=== PATIENT | male | born 1955 | race Caucasian/White ===

== ENCOUNTER 2022-08-04 06:57 | Observation (INO) ==
[2022-08-04 08:07] LABS: BUN Creatinine Ratio 18.5 (10-20); Calcium 8.8 mg/dl (8.5-10.1); Creatinine Clr Calc Pharmacy 72.1 ml/min; Est GFR (African American) 52.8 ml/min; Est GFR (Non-African American) 45.6 ml/min
[2022-08-04 08:11] LABS: Hematocrit (blood only) 42.5 % (40.1-51.0); Hemoglobin 14.8 g/dl (14.0-18.0); Mean Corpuscular Hemoglobin 28.7 pg (25.0-34.0); Mean Corpuscular Hgb Conc 34.8 g/dL (32.0-36.0); Mean Corpuscular Volume 82.4 fL (80.0-100.0); Mean Platelet Volume 9.1 fL (9.4-12.4); Platelet Count 138 K/uL (130-400); RDW Coefficient of Variation 14.6 % (11.5-14.5); RDW Standard Deviation 42.5 fL (36.4-46.3); Red Blood Count 5.16 M/uL (4.63-6.08); White Blood Count 7.16 K/ul (4.8-10.8)
[2022-08-04] MEDS ORDERED: HEPARIN (PORCINE) 1000 UNIT/ML 10 ML (CATH LAB USE ONLY) ONE ×2 (11:01→12:52)
[2022-08-04] MEDS ORDERED: fentaNYL citrate 100 MCG/2 ML VIAL ONE (11:01)
[2022-08-04] MEDS ORDERED: niCARdipine HCL INJ 2.5 MG/ML 10 ML AMP ONE (11:01)
[2022-08-04] MEDS ORDERED: NITROGLYCERIN/D5W 100MCG/ML 20ML SYR ONE (11:02)
[2022-08-04] MEDS ORDERED: MIDAZOLAM HCL 1 MG/ML 2ML VIAL ONE ×2 (11:02→13:14)
[2022-08-04] MEDS ORDERED: LIDOCAINE 1% LOCAL 20 ML VIAL ONE (11:07)
--- NOTE | 2022-08-04 11:30 | Pre Anesthesia Assessment ---
Date of Service August 04, 2022 Pre Sedation Assessment Vital Signs Temp Pulse Resp BP Pulse Ox O2 Del Method 08/04/22 07:19 98.4 F 62 16 147/86 H 95 Room Air Cardiovascular RRR, no murmur, no edema Respiratory normal respiratory effort, lungs clear to auscultation Pre-Sedation Airway Assessment Smoking Status: Former smoker Hx Sleep Apnea: Yes Hx Difficult Intubation: No Short, Thick Neck: No Thyromental Distance: > or= 3.5 Finger Breadths Oral Cavity: + WNL Mallampati Class: IV ASA: ASA3 NPO Status Date of Last Intake of Fluids: 08/04/22 Time of Last Intake of Fluids: 05:30 Last Oral Intake of Fluids Comment: sip with meds Date of Last Intake of Solid Food: 08/03/22 Time of Last Intake of Solid Foods: 18:30 Procedure Planning Contraindications for Sedation: none Current Medications Reviewed: Yes Notes The planned sedation has been discussed with the patient. Informed Consent was obtained. I have identified the patient, determined the appropriateness of sedation and have assessed the patient immediately prior to the procedure. All medicine(s) and interventions are by my order.
--- NOTE | 2022-08-04 11:30 | History & Physical Bridge Note ---
Date of Service August 04, 2022 History & Physical Bridge Note I have examined the patient, reviewed the History & Physical and in the interval since the performance of the History & Physical I have noted the following changes of clinical significance: no changes noted
[2022-08-04] MEDS ORDERED: ADENOSINE IV SOLN 3 MG/ML 20 ML VIAL IV ONE (12:14)
[2022-08-04] MEDS ORDERED: TICAGRELOR 90 MG TAB ONE (13:47)
[2022-08-04] MEDS ORDERED: ONDANSETRON INJ 2 MG/ML 2 ML VIAL IV PRN (14:22)
[2022-08-04] MEDS ORDERED: ACETAMINOPHEN 325 MG TAB PO PRN (15:30)
[2022-08-04] MEDS ORDERED: GLUCOSE 40% GEL 15 GM TUBE PO PRN (15:33)
[2022-08-04] MEDS ORDERED: CARBOHYDRATES FOR HYPOGLYCEMIA PO PRN (15:33)
[2022-08-04] MEDS ORDERED: DEXTROSE 50% 50 ML SYRINGE IV PRN (15:33)
[2022-08-04] MEDS ORDERED: GLUCAGON FOR INJ 1 MG VIAL SQ PRN (15:33)
[2022-08-04] MEDS ORDERED: GLUCOSE 10 TAB/TUBE PO PRN (15:33)
--- NOTE | 2022-08-04 15:37 | Post Anesthesia Assessment ---
Date of Service August 04, 2022 Post Sedation Assessment Vital Signs Temp Pulse Resp BP Pulse Ox O2 Del Method 08/04/22 15:10 68 16 150/89 H 92 Room Air 08/04/22 14:55 61 16 154/90 H 92 Room Air 08/04/22 14:40 61 16 149/87 H 92 Room Air 08/04/22 14:25 64 16 143/85 H 92 Room Air 08/04/22 14:10 65 16 148/84 H 92 Room Air 08/04/22 07:19 98.4 F 62 16 147/86 H 95 Room Air Recovery Score Activity: Moves 4 extremities Respiration: Deep Breath/Cough Circulation: +/-20% PreAnes Value Consciousness: Fully Awake Oxygen Saturation: > 92% On Room Air Post Anesthesia Score: 10 Discharge Sedation Level of Care: Fast Track Phase II Post Sedation Plan On clinical assessment, the patient appears to have tolerated the sedation without complications. Patient is recovering as anticipated. Patient will continue to be monitored by nursing and may be discharged when sedation discharge criteria are met per below protocol. Upon Completions of procedure up to 15 minutes continue every 5 minute vital signs and the P.A.R. score; then discharge to a Phase I or Fast Track to Phase II per the following guidelines: * Discharge Patient to appropriate Phase II area if PAR is 8 or greater or return to pre- procedure baseline. The post - procedure orders will be as directed. * If PAR score is less than 8 or not return to pre-procedure baseline then patient will follow Phase I monitoring till PAR is reached for Phase II. The Phase I may be done in procedure room or may call to secure a Phase I area. * If naloxone or flumazenil are used for reversal, hold in Phase I for continued monitoring from when last reversal dose was given for a minimum of 60 minutes or longer pending the nurse and/or physician discretion of patient condition before discharge to Phase II. Please call the Sedation Physician to re-evaluate and complete post-note for discharge to Phase II area. Do NOT discharge from procedure sedation or Phase 1 until post- sedation evaluat ion note is complete by procedure /sedation MD Sedation Discharge Instructions to be given to the patient at discharge to home.
--- NOTE | 2022-08-04 16:13 | Cardiac Catheterization ---
[facility] Data: Retail Beauty Specialist Cardiac Status Clinical evaluation leading to the procedure CAD Presenation: Stable angina Anginal Classification: CCS III Diagnostic Physicians Name: Jeremi Theodore MD Closure Device Recommendations: PCI without planned CABG Cardiac Cath Procedure Full Procedure Date August 04, 2022 Pre-Procedure Diagnosis Pre-Procedure Diagnosis: Angina and Cardiomyopathy AUC Score AUC Score: 7 Post-Procedure Diagnosis Post-Procedure Diagnosis: Severe CAD, Successful PCI and Elevated Intracardiac Pressures Procedure(s) Performed Procedure(s) Performed: Coronary Angiography, Left Heart Cath, Drug Eluting Stent, IVUS and Fractional Flow [place] Greeting Card Maker Jeremi Theodore MD Irrigation Laborer(s) Gyroscopic Instrument Tester Estimated Blood Loss Estimated Blood Loss: 25 Medication(s) Medication(s): Fentanyl, Heparin, Lidocaine 1%, Nicardipine, Nitroglycerin and Versed Medication(s): Ticagerlor Summary of Findings Indication: Angina, abnormal echocardiogram with apical wall motion abnormality Access: 6 Fr right radial artery Catheters: [place], AR-1, JL 4, EBU 3.5 guide Findings: LM -normal caliber, mildly calcified, 20-30% ostial LAD -medium caliber, heavily calcified, 99% mid segment stenosis with PENNY I distal flow. Small to medium D1 with diffuse ostial/proximal disease up to 90% Circumflex -large caliber, 30% ostial, 30-40% mid segment disease. Large bifurcating OM 2 with luminal irregularities. Small distal AV groove circumflex without significant disease. Circumflex provides faint left to left collaterals to apical LAD. RCA -dominant, large caliber, calcified, 40% earlymid stenosis, distal vessel without significant disease. Small RPDA with 60% ostial stenosis LVEDP -20 FFR of earlymid RCA Via diagnostic AR-1 catheter BMW wire navigated into distal RCA ACIST FFR catheter placed into late mid RCA segment Pd/Pa 0.99 IVUS/FFR of left main/proximal circumflex Left main cannulated with EBU 3.5 guide Product Safety Compliance Leader 50 wire placed into distal AV groove circumflex [place] IVUS catheter passed into mid circumflex Pullback revealed mild to moderate calcified mid segment, ostial disease. Mild calcified distal left main and ostial left main disease. ACIST FFR catheter placed into large OM 2 FFR 1.0 -- PCI of mid LAD-- Antithrombotic therapy: Heparin, ticagrelor Procedure: Left main cannulated with EBU 3.5 guide Pre-procedure flow PENNY 1 Long whisper wire passed across lesion into distal vessel Distal intraluminal position confirmed via injection through OTW balloon Mid LAD dilated with 2.0 computer analyst 50 wire placed into D1 [place] IVUS catheter placed in latemid LAD. Pullback revealed diffuse, calcified severe disease extending across mid segment to takeoff of D1. Proximal LAD with mild, calcified disease. Late mid LAD stented with 2.75 x 33 mm Xience drug-eluting stent Second ERMIAS placed to mid LAD just distal to the takeoff of D1 and overlapping with proximal aspect of initial stent Repeat IVUS assessment revealed well apposed stent with no apparent edge complications. Stents underexpanded in mid aspect. Stent post-dilated with 3.5 noncompliant balloon IC vasodilators administered for spasm Post procedure PENNY 3 flow, stents well expanded with minimal residual stenosis and no apparent cardiac complications. PENNY-3 flow in diffusely diseased D1, jailed D2. Arterial Closure: TR band Summary: 1. Multivessel coronary artery disease -99% diffuse mid LAD disease with PENNY I distal flow and faint left to left collaterals. Small to medium D1 with diffuse 90% disease 20-30% ostial, distal left main by IVUS 30% ostial, 30-40% mid circumflex (negative FFR). 40% earlymid RCA stenosis (negative FFR). 60% ostial small RPDA 2. Elevated intracardiac filling pressure 3. Successful PCI of mid LAD subtotal occlusion with 2 overlapping drug-eluting stents (2.75 x 23, 2.75 x 33 Xience; postdilated with 3.5 NC). Recommendations: To PCU for continued monitoring Loaded with ticagrelor 180 mg in Retail Beauty Specialist Continue dual-antiplatelet therapy for at least 1 year Continue statin, and ASCVD risk factor modification Consult cardiac Rehab Medical management for residual small branch vessel disease. Hemodynamics Rest Ao:: 126/81/105 Final Ao: 148/73/101 LV: 112/20 Recommendations Recommendations: PCI without planned CABG Specimens Specimens: None Radiation Exposure (mGy) 7710 Contrast (mls) 185 Anesthesia moderate [id number] Procedural Complication(s) None Disposition PCU I attest to the content of the Intraoperative Record and any orders documented therein. Any exceptions are noted below. [facility]FPOP[facility] Card Cath Procedure Codes Cardiac Catheterization Procedure 1: Cardiovascular Cath Procedures: 90843 Coronaries and LHC (+/-LV) Procedure 2: Cardiovascular Cath Procedures: 69760 (Doppler) Pressure Wire Procedure 3: Cardiovascular Cath Procedures: 90204 (Doppler) Pressure Wire Addl vessel Therapeutic Services & Ancillary Procedure 1: Cardiovascular Tx and Anc Procedures: 10345 IV Ultrasound (Coronary or Graft) Procedure 2: Cardiovascular Tx and Anc Procedures: 77304 IV Ultrasound Ea addl vessel Moderate Sedation Procedure 1: Sedation/Anesthesia: 31150 Mod Sedation by the same physician;Init15 Min Child Age 5 & Up Procedure 2: Sedation/Anesthesia: 91395 Mod Sedation by the same physician; Ea [id number] Minutes Stenting Procedure 1: Cardiovascular Stent Procedures: 87233 Perc transcatheter placement of intracoronary stent(s), with ang PG Care Time/CCT Total # of Minutes Spent Total Time Spent with Patient: Total time spent is greater than 50% in coordination of care (as documented) at patient's floor/unit and/or counseling patient:
[2022-08-04] MEDS: SODIUM CHLORIDE 0.9% 1000ML 1,000 ML IV SCH ×2 (16:45→16:47)
[2022-08-04] MEDS: GABAPENTIN 400 MG CAP PO SCH ×2 (17:42→20:41)
[2022-08-04] MEDS: INSULIN ASPART PER UNIT SC SCH ×2 (17:45→20:09)
[2022-08-04] MEDS ORDERED: LANTUS PER UNIT CHARGE SQ SCH (21:00)
[2022-08-04] MEDS ORDERED: ROSUVASTATIN CALCIUM 5 MG TAB PO SCH (21:00)
[2022-08-04] MEDS ORDERED: traZODone HCL 50 MG TAB PO SCH (21:00)
[2022-08-05] MEDS: INSULIN ASPART PER UNIT SC SCH (08:08)
[2022-08-05] MEDS: GABAPENTIN 400 MG CAP PO SCH (08:23)
[2022-08-05] MEDS ORDERED: FLUoxetine HCL 20 MG CAP PO SCH (09:00)
[2022-08-05] MEDS ORDERED: PANTOprazole 40 MG TAB PO SCH (09:00)
[2022-08-05] MEDS ORDERED: FINASTERIDE 5 MG TAB PO SCH (09:00)
[2022-08-05] MEDS ORDERED: LOSARTAN POTASSIUM 50 MG TAB PO SCH (09:00)
[2022-08-05] MEDS ORDERED: TICAGRELOR 90 MG TAB PO SCH (09:00)
[2022-08-05] MEDS ORDERED: ASPIRIN 81 MG ECTAB PO SCH (09:00)
[2022-08-05] MEDS ORDERED: amLODIPine BESYLATE 5 MG TAB PO SCH (09:00)
[2022-08-05] MEDS ORDERED: METOPROLOL SUCC 50MG EXT REL TAB PO SCH (09:00)
--- NOTE | 2022-08-05 10:54 | Electrocardiogram Report ---
Test Reason : Blood Pressure : / mmHG Vent. Rate : 067 BPM Atrial Rate : 067 BPM P-R Int : 256 ms QRS Dur : 114 ms QT Int : 444 ms P-R-T Axes : 026 039 043 degrees QTc Int : 469 ms Sinus rhythm with 1st degree A-V block Nonspecific T wave abnormality Anterior leads Abnormal ECG When compared with ECG of 08-DEC-2013 10:50, [place] interval has increased T wave inversion now evident in Anterior leads Confirmed by Blaine Laguna ([id number]) on 08/05/2022 10:54:23 AM Referred By: Doe Conteh Confirmed By:Blaine Laguna
--- NOTE | 2022-08-06 23:00 | Discharge Summary ---
Date of Service August 06, 2022 Admission HPI Per Admitting Provider Mr. Sloan is a 67-year-old with a history of type 2 diabetes, dyslipidemia, hypertension, GERD with exertional dyspnea for the last 3 months. Underwent recent echocardiogram showing new LV dysfunction with apical wall motion abnormality. Referred by Dr. Conteh for cardiac catheterization. Discharge Data Consultations 08/04/22 14:23 Consult Cardiac Rehabilitation Routine Procedures Performed Operation Date: 08/04/22 11:00 Actual Procedures p Cineradiography w/Routine Exam - Ibrahima Theodore MD s Fraction Flow [place] BOLIVAR Boles - Ibrahima Theodore MD s Fraction Flow [place] Addl Ramana - Ibrahima Theodore MD s IVUS Coronary Single Vessel - Ibrahima Theodore MD p Drug Eluting Stent SGl Vessel - Ibrahima Theodore MD p Cath, Left with Cors and Vent - Ibrahima Theodore MD Hospital Course (1) CAD (coronary artery disease): Plan Underwent cardiac catheterization via right radial artery. Findings: 1. Multivessel coronary artery disease -99% diffuse mid LAD disease with PENNY I distal flow and faint left to left collaterals. Small to medium D1 with diffuse 90% disease 20-30% ostial, distal left main by IVUS 30% ostial, 30-40% mid circumflex (negative FFR). 40% earlymid RCA stenosis (negative FFR). 60% ostial small RPDA 2. Elevated intracardiac filling pressure 3. Successful PCI of mid LAD subtotal occlusion with 2 overlapping drug-eluting stents (2.75 x 23, 2.75 x 33 Xience; postdilated with 3.5 NC). Post procedure patient admitted to telemetry for observation overnight. He remained chest pain-free throughout his hospitalization. No significant arrhythmia on telemetry. On hospital day 2 no apparent access site complications and was feeling well. Discharged home on DAPT with aspirin, ticagrelor. He will follow-up with Dr. Conteh in 2-3 weeks. Discharge Instructions Home Medications acetaminophen 325 mg tablet (Tylenol) 325 mg PO QID PRN Pain 07/22/21 [History Confirmed 08/04/22] aspirin 81 mg tablet,delayed release 81 mg PO HS 07/22/21 [History Confirmed 08/04/22] empagliflozin 10 mg tablet (Jardiance) 10 mg PO QAM 07/22/21 [History Confirmed 08/04/22] gabapentin 400 mg tablet 400 mg PO QID 07/22/21 [History Confirmed 08/04/22] insulin glargine 100 unit/mL subcutaneous solution 14 unit subcut HS 07/22/21 [History Confirmed 08/04/22] losartan 50 mg tablet 50 mg PO QAM 07/22/21 [History Confirmed 08/04/22] metformin 1,000 mg tablet 1,000 mg PO BID 07/22/21 [History Confirmed 08/04/22] metoprolol succinate 100 mg tablet,extended release 24 hr 100 mg PO QAM 07/22/21 [History Confirmed 08/04/22] rosuvastatin 5 mg tablet 5 mg PO HS 07/22/21 [History Confirmed 08/04/22] trazodone 50 mg tablet 50 - 100 mg PO HS 07/22/21 [History Confirmed 08/04/22] amlodipine 2.5 mg tablet 2.5 mg PO DAILY 08/04/22 [History Confirmed 08/04/22] finasteride 5 mg tablet 5 mg PO DAILY 08/04/22 [History Confirmed 08/04/22] fluoxetine 40 mg capsule 40 mg PO DAILY 08/04/22 [History Confirmed 08/04/22] omeprazole 40 mg capsule,delayed release 40 mg PO DAILY 08/04/22 [History Confirmed 08/04/22] ticagrelor 90 mg tablet (Brilinta) 90 mg PO BID #60 tabs 08/05/22 [Rx] Coding Level of Care Code 22107 OBS Care - Discharge Diagnoses CAD (coronary artery disease) I25.10
== END 2022-08-05 12:35 | disposition home or self-care (01) ==
LOC: CC 06:57 → 2E 06:57
DX: I42.9 Cardiomyopathy, unspecified; I25.119 Atherosclerotic heart disease of native coronary artery with unspecified angina pectoris; Z79.899 Other long term (current) drug therapy